=== PATIENT | male | born 1965 | race Caucasian/White ===

== ENCOUNTER 2023-09-06 14:43 | Emergency (ER) | payer BC ==
[~2023-09-06] VITALS: Ht 175.3 cm; Wt 80.3 kg
[2023-09-06 15:51] VITALS: BP 128/79; PULSE 59; RESP 18; TEMP 98.7; O2SAT 99
[2023-09-06 16:01] LABS: FLU A ANTIGEN negative (NEGATIVE); FLU B ANTIGEN NEGATIVE (NEGATIVE)
[2023-09-06] MEDS ORDERED: PROM118S5 PO (16:06)
[2023-09-06] MEDS ORDERED: IBUP-2213 PO (16:06)
[2023-09-06] MEDS ORDERED: ONDA-188 PO (16:06)
== END 2023-09-06 16:23 | disposition home or self-care (01) ==
LOC: MED 14:43
DX: U07.1 COVID-19 (principal); Z79.899 Other long term (current) drug therapy
CPT/HCPCS: 99283